=== PATIENT | female | born 1965 | race American Indian/Alaskan Native ===

== ENCOUNTER 2017-07-26 09:19 | Outpatient (CLI) | payer OTHER ==
--- NOTE | 2017-07-26 10:53 | Mammography Report ---
Bilateral mammogram and left breast ultrasound: The patient presents with a palpable small nodule just above the left nipple which she claims has been present for many years without change. A marker is placed over the area of concern. Standard images are obtained in addition to medial and lateral roll CC projections on the left. No abnormality is identified at the location of the marker. There is a circumscribed and homogeneous and slightly lobulated nodule located in the superomedial breast measuring approximately 11 mm and a questionable nodular area more anteriorly in the central CC projection which is less well-visualized on the rolled CC images. Whole breast ultrasound demonstrates what appears to be a cluster of about the lucent circumscribed masses in the 10:00 location 3 cm from the nipple. This measures approximately a centimeter in maximum size. Additional small circumscribed echo lucencies are noted in the 2:00, 3:00, and 9:00 locations. CAD used. Impression: Mammographic ultrasound findings as described. Recommendation: Her prior 2015 mammogram is being requested and when made available comparison report and recommendations will be issued. BI-RADS CATEGORY: 0 = Needs additional imaging evaluation ACR BI-RADS MAMMOGRAPHIC CODES: 0 = Needs additional imaging evaluation; 1 = Negative; 2 = Benign; 3 = Probably benign; 4 = Suspicious; 5 = Malignant; 6 = Known biopsy-proven malignancy COMMENT: 1. Dense breast tissue, i.e., adenosis, fibrocystic changes, etc., may obscure an underlying neoplasm. 2. Approximately 10% of cancers are not detected with mammography. 3. A negative mammography report should not delay biopsy if a clinically suspicious mass is present.
== END 2017-07-26 09:20 | disposition home or self-care (01) ==
LOC: MAMMO 09:19
DX: N63.20 Unspecified lump in the left breast, unspecified quadrant (principal); R92.8 Other abnormal and inconclusive findings on diagnostic imaging of breast
CPT/HCPCS: 77066